=== PATIENT | female | born 1965 | race African-American/Black ===

== ENCOUNTER 2019-02-06 22:50 | Emergency (ER) | payer BC ==
[2019-02-07] MEDS: LIDOCAINE 1% INJ-PF (10 MG/ML) 30 ML SDV INJ ONE ×2 (01:12→01:58)
[2019-02-07] MEDS ORDERED: LIDOCAINE 1%/EPINEPHRINE INJ 20 ML VIAL ONE (01:51)
[2019-02-07] MEDS ORDERED: CEPHALEXIN 500 MG CAPSULE PO ONE (02:18)
[2019-02-07] MEDS ORDERED: DIPH/PERTUSS(ACELL)/TETANUS VAC/PF 0.5 ML SYR (>=10YO) IM ONE (02:20)
--- NOTE | 2019-02-07 02:20 | ER Document Report ---
ED General - General Chief Complaint: Laceration Stated Complaint: HAND/WRIST LACERATIONS Time Seen by Provider: 02/07/19 00:28 Notes: Patient is a pleasant 53-year-old female presents with complaint of lacerations to her right wrist and left hand. 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 She does admit that her mother recently but she says that she is not suicidal or severely depressed. She denies trying to hurt herself in any way. She denies any numbness or weakness into the hands or fingers. She denies any other complaints at this time. Last tetanus shot was more than 10 years ago. TRAVEL OUTSIDE OF THE [place] IN LAST 30 DAYS: No - Related Data Allergies/Adverse Reactions: No Known Allergies Allergy (Verified 02/07/19 00:49) Past Medical History - Social History Smoking Status: Never Smoker Chew tobacco use (# tins/day): No Frequency of alcohol use: None Drug Abuse: None Family History: Reviewed & Not Pertinent Patient has suicidal ideation: No Patient has homicidal ideation: No Renal/ Medical History: Denies: Hx Peritoneal Dialysis Review of Systems - Review of Systems Notes: My Normal Review Basic REVIEW OF SYSTEMS: CONSTITUTIONAL : Denies fever, chills, or sweats. Denies recent illness. MUSCULOSKELETAL: Laceration to right wrist and left hand. SKIN: Denies rash or skin lesions. HEMATOLOGIC : Denies easy bruising or bleeding. NEUROLOGICAL: Denies sensory or motor loss. ALL OTHER SYSTEMS REVIEWED AND NEGATIVE. Physical Exam - Vital signs Vitals: Temp Pulse Resp BP Pulse Ox 98.2 F 92 20 163/104 H 98 02/06/19 23:09 02/06/19 23:09 02/06/19 23:09 02/06/19 23:09 02/06/19 23:09 - Notes Notes: General Appearance: Well nourished, alert, cooperative, no acute distress, no obvious discomfort. Well-appearing. Vitals: reviewed, See vital signs table. Extremities: strength 5/5 in all extremities, good pulses in all extremities, patient has approximately 3 cm laceration over the radial aspect of the right wrist. This is on the anterior aspect of the right wrist. There is no arterial bleeding. Her radial pulse is intact to palpation. No evidence of tendinous injury on exam of the wound. She does have some continuous venous oozing. Patient is able to move all fingers of her right hand. She does have good distal sensation all digits. Patient is able to abduct and abduct all fingers. She is able to do opposition with all fingers with her thumb. Patient is able make okay sign with her thumb and second digit and hold it tightly. Hand is neurovascularly intact. Patient does have a small stellate type laceration in the webspace of the left third and fourth digits. Small amount of venous oozing. No obvious tendinous injury on exam. Patient has a very small superficial less than 1 cm laceration on the distal aspect of the middle finger. Small amount of venous oozing. Skin: warm, dry, appropriate color, no rash Neuro: speech clear, oriented x 3, normal affect, responds appropriately to questions. Course - Re-evaluation Re-evalutation: 02/07/19 04:21 Patient does not appear depressed in any way. I did ask her questions about suicide depression she denies. She is upbeat and very appropriate on exam. is at bedside and does not show any concerns for her being suicidal either. She does have a laceration on her right wrist which is why asked his questions however the lacerations on her left hand are consistent with her story of her excellently following the recycling or rubbish collector knife and it cutting her. Lacerations were cleaned with Shur-Clens and sutured closed. Patient is neurovascularly intact in both right and left hand. I will place her on Keflex. I informed patient to return to ER immediately if she has any redness or swelling to the hand or wrist or if she has any signs of infection. She is to return to ER in 7 days for suture removal. Patient agrees with plan and will be discharged home. Dictation of this chart was performed using voice recognition software; therefore, there may be some unintended grammatical errors. - Vital Signs Vital signs: Temp Pulse Resp BP Pulse Ox 98.7 F 97 18 142/85 H 100 02/07/19 02:34 02/07/19 02:34 02/07/19 02:34 02/07/19 02:34 02/07/19 02:34 Procedures - Laceration/Wound Repair right wrist Wound length (cm): 3 Wound's Depth, Shape: Linear Laceration pre-procedure: Shur-Clens applied Anesthetic type: 1% Lidocaine w/epi Volume Anesthetic (mLs): 2 Wound explored: Clean Wound Repaired With: Sutures Suture Size/Type: 4:0, Ethilon Number of Sutures: 5 Post-procedure NV exam normal: Yes Complications: No left hand Wound length (cm): 1 Wound's Depth, Shape: Irregular Laceration pre-procedure: Shur-Clens applied Anesthetic type: 1% Lidocaine w/epi Volume Anesthetic (mLs): 1 Wound explored: Clean Wound Repaired With: Sutures Suture Size/Type: 6:0, Ethilon Number of Sutures: 4 Post-procedure NV exam normal: Yes Complications: No left third finger Wound length (cm): 1 Wound's Depth, Shape: Superficial Laceration pre-procedure: Shur-Clens applied Wound explored: Clean Wound Repaired With: Dermabond Complications: No Discharge - Discharge Clinical Impression: Laceration Condition: Good Disposition: HOME, SELF-CARE Additional Instructions: LACERATION CARE: Your laceration has been sutured to keep the skin edges aligned during healing. The time of suture removal depends on the nature and location of your cut. Please follow the care instructions the doctor has outlined for you and return for further care, according to the schedule you've been given. Keep the wound and dressing clean. Unless you were told otherwise, you may shower daily, blotting the wound dry with a clean, unused towel. At other times, If the dressing gets wet or blood soaked, remove it and blot the wound dry, then reapply a new dressing. Unless you were instructed otherwise, dressings should be changed at least daily. If any signs of infection occur (swelling, redness, drainage, increasing tenderness, red streaks, tender lumps in the armpit or groin above the laceration, or fever), see the doctor immediately. SOAP CLEANSING: Gently wash the wound daily using a mild soap (like Ivory, Phisoderm, Neutrogena). Use warm water, rubbing gently until all debris, ooze, and crusting have been washed from the wound. Allow to dry briefly (about 10 minutes) after cleaning. Repeat this cleansing at least three times a day for the first two days and then once or twice a day. TETANUS IMMUNIZATION GIVEN: You have been given an immunization against tetanus. Please record this in your records. In general, a booster is needed only once every 10 years. The tetanus shot protects against tetanus or "lockjaw," which is a complication of certain wound infections (the tetanus shot cannot protect against the actual infection). The immunization site may become warm and red due to local reaction. If this occurs, apply warm compresses and take aspirin or ibuprofen to reduce inflammation and discomfort. Return for evaluation if the reaction becomes severe. PROPHYLACTIC ANTIBIOTIC: The antibiotics which have been prescribed are designed to decrease the risk of infection. Only certain types of wounds benefit from this -- the typical cut, scrape, or burn DOES NOT require antibiotics. Of course, infection can still occur despite the use of prophylactic antibiotics. Your wound will heal with less chance of an infectious complication if you take the medication as directed. The most important dose is the FIRST dose, so don't delay filling the prescription! FOLLOW-UP CARE: Your sutures should be removed in __7___ days. To facilitate a timely removal of your sutures, you may return to the Emergency Department at [facility]. You do not need to call for an appointment, but the best time to come in for suture removal is early in the morning. If you have been referred to another physician for follow-up care, call that physicians office for an appointment as you were instructed. If you experience a significant change in your laceration, or if you are concerned there may be an infection (swelling, redness, drainage, increasing tenderness, red streaks, tender lumps in the armpit or groin above the laceration, or fever), return to the Emergency Department immediately re-evaluation. Prescriptions: RX: Cephalexin Monohydrate [Keflex 500 mg Capsule] 500 mg PO BID #10 capsule
[2019-02-07 02:35] VITALS: BP 142/85
== END 2019-02-07 02:34 | disposition home or self-care (01) ==
LOC: ER 22:50
DX: S61.412A Laceration without foreign body of left hand, initial encounter (principal); W27.4XXA Contact with kitchen utensil, initial encounter
CPT/HCPCS: 99282; 90471; 90715; 12001; J3490

== ENCOUNTER 2019-02-07 08:53 | Emergency (ER) | payer BC ==
[2019-02-07 09:02] VITALS: BP 150/88
--- NOTE | 2019-02-07 09:26 | ER Document Report ---
HPI - HPI Patient complains to provider of: wound recheck Time Seen by Provider: 02/07/19 09:06 Onset: Yesterday Onset/Duration: Sudden Quality of pain: Achy Severity: Moderate Pain Level: 4 Context: 53-year-old female presented to ED for recheck of lacerations. She was seen here earlier for lacerations to hand and wrist. pt reports area between her left fingers has been bleeding and wants more stitches. She states she has increased of bleeding from right wrist area. Associated Symptoms: Other Exacerbated by: Movement Relieved by: Denies Similar symptoms previously: Yes Recently seen / treated by doctor: Yes - ROS ROS below otherwise negative: Yes - CONSTITUTIONAL Constitutional: DENIES: Fever, Chills - EENT EENT: DENIES: Sore Throat, Ear Pain, Nasal Drainage-Clear, Nasal Drainage- Purulent, Congestion, Eye problems - NEURO Neurology: DENIES: Headache, Weakness, Vision blurred, Dizzinesss / Vertigo - CARDIOVASCULAR Cardiovascular: DENIES: Chest pain - RESPIRATORY Respiratory: DENIES: Trouble Breathing, Coughing - GASTROINTESTINAL Gastrointestinal: DENIES: Abdominal Pain, Nausea, Patient vomiting, Diarrhea, Constipation, Black / Bloody Stools - REPRODUCTIVE Reproductive: DENIES: :, Postmenopausal, Abnormal bleeding / discharge - MUSCULOSKELETAL Musculoskeletal: REPORTS: Extremity pain. DENIES: Back Pain, Neck Pain, Swelling - DERM Skin Color: Normal Skin Problems: Laceration Past Medical History - General Information source: Patient - Social History Smoking Status: Never Smoker Frequency of alcohol use: None Drug Abuse: None Family History: Reviewed & Not Pertinent Patient has suicidal ideation: No Patient has homicidal ideation: No - Past Medical History Cardiac Medical History: Reports: None Pulmonary Medical History: Reports: None EENT Medical History: Reports: None Neurological Medical History: Reports: None Endocrine Medical History: Reports: None Renal/ Medical History: Reports: None Malignancy Medical History: Reports: None GI Medical History: Reports: None Musculoskeletal Medical History: Reports None Skin Medical History: Reports None Psychiatric Medical History: Reports: None Traumatic Medical History: Reports: None Infectious Medical History: Reports: None Surgical Hx: Negative Past Surgical History: Reports: None Vertical Provider Document - CONSTITUTIONAL Agree With Documented VS: Yes Exam Limitations: No Limitations General Appearance: WD/WN, No Apparent Distress - INFECTION CONTROL TRAVEL OUTSIDE OF THE [place] IN LAST 30 DAYS: No - HEENT HEENT: Atraumatic, Normal ENT Exam, Normocephalic, PERRLA - NECK Neck: Normal Inspection - RESPIRATORY Respiratory: Breath Sounds Normal, Chest Non-Tender, Other - CARDIOVASCULAR Cardiovascular: Regular Rate, Regular Rhythm, No Murmur - MUSCULOSKELETAL/EXTREMETIES Musculoskeletal/Extremeties: MAEW, FROM - NEURO Level of Consciousness: Awake, Alert, Appropriate - DERM Integumentary: Laceration - Left wrist right between the second and third finger and the ring finger sutures to the left wrist and between the second and third finger on the right hand placed last night Course - Re-evaluation Re-evalutation: 02/07/19 09:30 Wounds cleaned well with surgical scrub rinsed well with warm water, bacitracin Telfa and Kerlix applied. - Vital Signs Vital signs: Temp Pulse Resp BP Pulse Ox 98.5 F 90 13 150/88 H 98 02/07/19 08:59 02/07/19 08:59 02/07/19 08:59 02/07/19 08:59 02/07/19 08:59 Discharge - Discharge Clinical Impression: Encounter for wound re-check Condition: Stable Disposition: HOME, SELF-CARE Additional Instructions: You were seen today for recheck of your wounds to your left hand and right wrist. You have wounds to several fingers and your right wrist. I have cleaned all of your wounds dressed them with bacitracin Telfa and gauze. Please clean these wounds 3 times a day using the soap that I provided and apply bacitracin Telfa and gauze. Please be sure that she cleaned well between the sutures so that you do not form scabs as this will make the suture removal harder. Please do not sit your hands in sitting water for at least the next week. Please do not do dishwashing or sit in a tub with your hands in the water until your sutures are removed. SOAP CLEANSING: Gently wash the wound daily using a mild soap (like Ivory, Phisoderm, Neutrogena). Use warm water, rubbing gently until all debris, ooze, and crusting have been washed from the wound. Allow to dry briefly (about 10 minutes) after cleaning. Repeat this cleansing at least three times a day for the first two days and then once or twice a day. ANTIBIOTIC OINTMENT PROTECTION: Your wounds are such that dressing them is not practical or optional. Aft er cleansing, you should apply a thin coating of antibiotic ointment (Bacitracin, not Neosporin) to the wounds at least three times daily. This lessens infection risk, and may decrease the amount of scarring. Use a q-tip or dull butter knife, not your finger, to apply this ointment. Any debris or ooze which builds up in the ointment should be gently rubbed off with a sterile gauze pad. Harder crusting may need to be gently scrubbed off with a clean wash cloth with soap and warm water, perhaps applying a warm, wet wash cloth to the wound for ten minutes first. Development of redness, severe itching, or blistering may mean allergy to the ointment. See the doctor. Please use a probiotic to reduce the side effects to your antibiotic Keflex. If you go to [facility] there is one called Florajen that should keep in the refrigerated that is very effective or you can buy any brand you would like. Florajen is the one I use. Please follow-up with your primary doctor as instructed by the provider who instilled your sutures. Follow-up on the schedule he gave you. Forms: Elevated Blood Pressure, Return to Work, Special Work Note Referrals: BREN ELY NP [Primary Care Provider] - Follow up as needed
== END 2019-02-07 09:31 | disposition home or self-care (01) ==
LOC: ER 08:53
DX: S61.512D Laceration without foreign body of left wrist, subsequent encounter (principal); S61.411D Laceration without foreign body of right hand, subsequent encounter; X58.XXXD Exposure to other specified factors, subsequent encounter
CPT/HCPCS: 99282

== ENCOUNTER 2019-02-09 07:43 | Emergency (ER) | payer BC ==
[2019-02-09 07:50] VITALS: BP 119/80
--- NOTE | 2019-02-09 10:01 | ER Document Report ---
HPI - HPI Patient complains to provider of: suture check Time Seen by Provider: 02/09/19 09:38 Pain Level: Denies Context: 53-year-old female sent to the emergency department for a suture that came untied on her right wrist. She says that happened a couple of days ago when she put some new skin on it and the wound has held for now. She denies any redness to the site any fevers. She denies any swelling or oozing from the site. No other complaints - REPRODUCTIVE Reproductive: DENIES: : Past Medical History - Social History Smoking Status: Never Smoker Chew tobacco use (# tins/day): No Frequency of alcohol use: None Drug Abuse: None Family History: Reviewed & Not Pertinent Patient has suicidal ideation: No Patient has homicidal ideation: No Renal/ Medical History: Denies: Hx Peritoneal Dialysis Past Surgical History: Reports: Hx Gynecologic Surgery - cyst on ovary, Hx Orthopedic Surgery - right arm Vertical Provider Document - CONSTITUTIONAL Notes: PHYSICAL EXAMINATION: Reviewed vital signs and charting by RN GENERAL: Alert, interacts well. No acute distress. HEAD: Normocephalic, atraumatic. EYES: Pupils equal and round. Extraocular movements intact. ENT: Oral mucosa moist NECK: Full range of motion. Trachea midline. EXTREMITIES: Moves all 4 extremities spontaneously. No edema, No cyanosis. PSYCH: Normal affect, normal mood. SKIN: Warm, dry, normal turgor. Right caudal wrist at the area of the carpal tunnel with a suture that came untied, wound does not have dehiscence. No oozing or bleeding from the site skin is still approximated - INFECTION CONTROL TRAVEL OUTSIDE OF THE [place] IN LAST 30 DAYS: No Course - Re-evaluation Re-evalutation: 02/09/19 10:01 We will attempt to retie the suture, if not the wound is approximated and holding. She does not want to get charge so if I am unable to tie it she will discontinue use new skin and the wound should hold without problem. She was given strict return precautions. 02/09/19 10:14 Unable to tie the knot so it was removed. - Vital Signs Vital signs: Temp Pulse Resp BP Pulse Ox 98.2 F 80 119/80 96 02/09/19 07:47 02/09/19 07:47 02/09/19 07:47 02/09/19 07:47 Discharge - Discharge Clinical Impression: Visit for wound check Condition: Good Disposition: HOME, SELF-CARE Additional Instructions: You are seen in the emergency department this morning for a wound check and to have your suture retied. There was not enough slack in the suture to make an effective not to the best course of action was to remove it. You can continue to use the new skin as the wound is approximated very well. If it does completely dehisced and open wide I would recommend following up at an urgent care with your primary to get reassessed. You can also follow-up here. If you start to get redness around the wound, purulent discharge comes from it, you get a fever, or you have red streaks moving up your arm return to the emergency department for reevaluation as this is a sign of infection and he may require antibiotic's. Referrals: BREN ELY NP [Primary Care Provider] - Follow up as needed
== END 2019-02-09 10:41 | disposition home or self-care (01) ==
LOC: ER 07:43
DX: Z48.817 Encounter for surgical aftercare following surgery on the skin and subcutaneous tissue (principal)
CPT/HCPCS: 99282

== ENCOUNTER 2019-02-13 22:00 | Emergency (ER) | payer BC ==
[2019-02-13 22:12] VITALS: BP 126/62
--- NOTE | 2019-02-14 02:12 | ER Document Report ---
HPI - HPI Time Seen by Provider: 02/14/19 02:05 Pain Level: Denies Context: Patient is a 53-year-old female who presents the emergency department to have her stitches removed. She states that it has been 8 days that she has had her stitches in. She does have a cut to her right wrist and in the webspaces between digits 3 and 4. She denies any fever, body aches, chills, or any other symptoms. The cut that is between the webspaces of digits 3 and 4 are not completely healed. - ROS Notes: REVIEW OF SYSTEMS: CONSTITUTIONAL : Denies recent illness. Denies recent unintentional weight loss. Denies fever, chills, or sweats. MUSCULOSKELETAL: Denies neck and back pain. Denies joint pain or swelling. SKIN: Denies rash, itchiness, or lesions PSYCHIATRIC: Denies stress, anxiety, alteration in sleep patterns, or de pression. All other systems reviewed and negative. - REPRODUCTIVE Reproductive: DENIES: : Past Medical History - Social History Smoking Status: Unknown if Ever Smoked Family History: Reviewed & Not Pertinent Renal/ Medical History: Denies: Hx Peritoneal Dialysis Past Surgical History: Reports: Hx Gynecologic Surgery - cyst on ovary, Hx Orthopedic Surgery - right arm Vertical Provider Document - CONSTITUTIONAL Notes: PHYSICAL EXAMINATION: GENERAL: Appears well, healthy, well-nourished, no acute distress. HEAD: Normocephalic, atraumatic. EYES: PERRL, conjunctiva normal, all extraocular movements intact, sclera nonicteric EXTREMITIES: Normal strength and range of motion, no pitting or edema. No cyanosis. SKIN: Warm, dry. No rash, lesions, ulcerations noted. Normal skin turgor. Sutures noted to right wrist and webspace between digits 3 and 4 of left hand. - INFECTION CONTROL TRAVEL OUTSIDE OF THE [place] IN LAST 30 DAYS: No Course - Re-evaluation Re-evalutation: 02/14/19 Patient's right wrist sutures were successfully removed. Her sutures in between her web space need a little more time for healing. I have advised her to follow-up with her primary care provider to have these removed. She is in agreement with this plan. I do not suspect any cellulitis, as there is no surrounding redness. Follow-up precautions were given. Verbal discharge instructions were given to the patient. They verbalized understanding. They are stable for discharge. - Vital Signs Vital signs: Temp Pulse Resp BP Pulse Ox 98.4 F 90 18 126/62 H 96 02/13/19 22:10 02/13/19 22:10 02/13/19 22:10 02/13/19 22:10 02/13/19 22:10 Discharge - Discharge Clinical Impression: Visit for suture removal Condition: Stable Disposition: HOME, SELF-CARE Additional Instructions: You are seen today in the emergency department for suture removal. We are able to remove the stitches on your wrist, but unable to remove the stitches in between your fingers. Please follow-up with your regular doctor to have these removed. If you develop a fever, or have any other symptoms that are worrisome to you, please return to the emergency department. Forms: Return to Work Referrals: ZEUS YANG FNP [Primary Care Provider] - Follow up in 3-5 days
== END 2019-02-14 02:20 | disposition home or self-care (01) ==
LOC: ER 22:00
DX: S61.511D Laceration without foreign body of right wrist, subsequent encounter (principal); X58.XXXD Exposure to other specified factors, subsequent encounter